=== PATIENT | male | born 1955 | race Caucasian/White ===

== ENCOUNTER 2017-07-13 02:09 | Observation (INO) | payer MEDICARE, OTHER ==
[2017-07-13] MEDS ORDERED: Diphtheria,Pertussis(Acell),Tetanus Vaccine 0.5 ML SDV IM ONE (02:37)
--- NOTE | 2017-07-13 02:37 | EDM.PDOC ---
ED HPI GENERAL MEDICAL PROBLEM - General Stated Complaint: LACERATION ON FOREHEAD Time Seen by Provider: 07/13/17 02:09 Source of Information: Reports: Patient, EMS History Limitations: Reports: Altered Mental Status - History of Present Illness INITIAL COMMENTS - FREE TEXT/NARRATIVE: 61 y.o.w.m h/o bilateral below knee amputation, came to the ed after he fell out of his wheelchair and hit his head with LOC. As per EMS, pt was drinking. This was denied by the patient. Pt is a poor historian disoriented to time and place, guevara not remember his meds, no family is present. Pt is not able to give a clear HPI. BP 172/71 pulse 64 temp 36.3 pulse ox 96 Onset: Today Onset Date: 07/13/17 Onset Time: 01:00 Duration: Minutes:, Constant, Intermittent Location: Reports: Head Quality: Reports: Ache, Burning, Dull Severity: Mild Improves with: Reports: Rest Worsens with: Reports: Movement Context: Reports: Trauma (head imjury) Headache Pain Score (Numeric/FACES): 2 - Related Data Allergies Allergy/AdvReac Type Severity Reaction Status Date / Time celecoxib [From Celebrex] Allergy Hives Verified 07/13/17 03:29 Home Meds: Home Meds . [Unable to Verify Home Med List] 07/13/17 [History] Past Medical History HEENT History: Reports: Impaired Vision Cardiovascular History: Reports: Blood Clots/VTE/DVT, High Cholesterol, Hypertension, SOB on Exertion Respiratory History: Reports: COPD, Pneumonia, Recurrent, SOB Gastrointestinal History: Reports: GERD Genitourinary History: Reports: Prostate Disorder Musculoskeletal History: Reports: Amputation, Arthritis, Fracture, Osteoarthritis, Osteoporosis, RA, Other (See Below) Other Musculoskeletal History: narciso legs one 4yrs ago the other 5 yrs ago, Lt hipfx, narciso wrist fx Neurological History: Reports: None Psychiatric History: Reports: Anxiety, Depression, Panic Attack Endocrine/Metabolic History: Reports: Osteoporosis Hematologic History: Reports: None Immunologic History: Reports: None Oncologic (Cancer) History: Reports: None Dermatologic History: Reports: None - Infectious Disease History Infectious Disease History: Reports: Chicken Pox, Influenza, MRSA, Shingles - Past Surgical History Head Surgeries/Procedures: Reports: None HEENT Surgical History: Reports: Naso-Sinus Surgery Cardiovascular Surgical History: Reports: None Respiratory Surgical History: Reports: None GI Surgical History: Reports: Colonoscopy, EGD, Hernia, Inguinal Male Surgical History: Reports: Circumcision Endocrine Surgical History: Reports: None Neurological Surgical History: Reports: None Musculoskeletal Surgical History: Reports: Amputation, Carpal Tunnel, Hip Replacement Oncologic Surgical History: Reports: None Dermatological Surgical History: Reports: None Social & Family History - Family History Family Medical History: Noncontributory HEENT: Reports: None OBGYN: Reports: Immunologic: Reports: None - Tobacco Use Smoking Status *Q: Current Every Day Smoker Years of Tobacco use: 40 Packs/Tins Daily: 0.3 Used Tobacco, but Quit: Yes Month Tobacco Last Used: may 2015 Second Hand Smoke Exposure: No - Caffeine Use Caffeine Use: Reports: Coffee, Soda - Alcohol Use Days Per Week of Alcohol Use: 2 Number of Drinks Per Day: 3 Total Drinks Per Week: 6 - Recreational Drug Use Recreational Drug Use: No - Living Situation & Occupation Living situation: Reports: with Family ED ROS GENERAL - Review of Systems Review Of Systems: Unable To Obtain (pt is confused, no family) ED EXAM, HEAD INJURY - Physical Exam Exam: See Below Exam Limited By: Altered Mental Status General Appearance: Alert, WD/WN, Mild Distress Head: Scalp Hematoma, Facial Lacerations (forehead) Eyes: Left Eye: Periorbital Changes (LAC left periorbital LAC), Bilateral Eye: Normal Inspection Ears: Normal External Exam Nose: Normal Inspection Throat/Mouth: Normal Inspection Neck: Non-Tender Respiratory: No Respiratory Distress, Lungs Clear Cardiovascular: Normal Peripheral Pulses GI/Abdominal Exam: Normal Bowel Sounds, Soft, Non-Tender (Male) Exam: Deferred Rectal (Males) Exam: Deferred Back Exam: Normal Inspection Extremities: Normal Inspection, Normal Range of Motion, Other (bilaterl below knee amputation) Neurologic: supervisor cartography II-XII nml As Tested, Abnormal Cerebellar Tests, Abnormal Gait, Disoriented x 3 Skin: Other (LAC right forehead) - Termo Coma Score Best Eye Response (Jennifer): (4) Open Spontaneously Best Verbal Response (Jennifer): (5) Oriented Best Motor Response (Jennifer): (4) Withdraws to Pain Jennifer Total: 15 ED LACERATION/WOUND & [place] PROC - Laceration/Wound Repair Right Forehead Lac/wound length in cm: 2 Appearance: Subcutaneous, Linear, Stellate Distal NVT: Neuro & Vascular Intact, No Tendon Injury Anesthetic Type: Local Local Anesthesia - Lidocaine (Xylocaine): 2% Plain Local Anesthetic Volume: 2cc Skin Prep: Chlorhexidine (Hibiciens) Saline irrigation (cc's): 5 Exploration/Debridement/Repair: Wound Explored, In a Bloodless Field, Explored to Base Closed with: Sutures Suture Size: 4-0 # of Sutures: 4 Suture Type: Interrupted Tetanus Status Addressed: Yes Complications: No Course - Vital Signs Text/Narrative:: 61 y.o.w.m h/o bilateral below knee amputation, came to the ed after he fell out of his wheelchair and hit his head with LOC. As per EMS, pt was drinking. This was denied by the patient. Pt is a poor historian disoriented to time and place, guevara not remember his meds, no family is present. Pt is not able to give a clear HPI. BP 172/71 pulse 64 temp 36.3 pulse ox 96 PE: Mental status change, Head injury, Laceration r forehead, Narciso below knee amputation Labs: CBC NL, ETOH < 0.03 Imaging: CT head NAD Impression: Mental status changes after head trauma. Lac right forehead ( repaired) Tx: Wound repair Reexam: Pt is confused to Time and place Plan: Admit to [facility], no family is present Last Recorded V/S: Last Vital Signs Temp 36.7 C 07/13/17 08:00 Pulse 99 07/13/17 08:00 Resp 22 H 07/13/17 08:00 BP 140/89 07/13/17 08:00 Pulse Ox 92 L 07/13/17 08:29 - Orders/Labs/Meds Orders: Active Orders 24 hr Category Date Time Status Vaccines to be Administered [RC] PER UNIT ROUTINE Care 07/13/17 02:38 Active Cervical Spine wo Cont [CT] Stat Exams 07/13/17 02:19 Taken Head wo Cont [CT] Stat Exams 07/13/17 02:19 Taken Labs: Laboratory Tests 07/13/17 07/13/17 07/13/17 Range/Units 02:29 02:29 02:29 WBC 6.4 (4.5-12.0) X10-3/uL RBC 3.85 L (4.30-5.75) x10(6)uL Hgb 11.5 (11.5-15.5) g/dL Hct 33.8 (30.0-51.3) % MCV 87.8 (80-96) fL MCH 29.8 (27.7-33.6) pg MCHC 33.9 (32.2-35.4) g/dL RDW 16.9 H (11.5-15.5) % Plt Count 265 (125-369) X10(3)uL MPV 8.0 (7.4-10.4) fL Neut % (Auto) 61.9 (46-82) % Lymph % (Auto) 22.4 (13-37) % [place] % (Auto) 11.6 (4-12) % Eos % (Auto) 4 (1.0-5.0) % Baso % (Auto) 1 (0-2) % Neut # (Auto) 4.1 (1.6-8.3) # Lymph # (Auto) 1.4 (0.6-5.0) # [place] # (Auto) 0.7 (0.0-1.3) # Eos # (Auto) 0.2 (0.0-0.8) # Baso # (Auto) 0.0 (0.0-0.2) # PT 11.1 (8.7-11.1) INR 1.10 (0.89-1.13) NT-Pro-B Natriuret Pep 101 (<=125) pg/mL Ethyl Alcohol < 0.03 H (<0.03) % Meds: Medications Discontinued Medications Generic Name Dose Route Start Last Admin Trade Name Pb PRN Reason Stop Dose Admin Acetaminophen 500 mg 07/13/17 08:14 07/13/17 08:33 Tylenol Extra Strength PO 500 mg Q4H PRN Administration Pain Diphtheria/Tetanus/Acell Pertussis 0.5 ml 07/13/17 02:37 07/13/17 03:15 Adacel IM 07/13/17 02:38 0.5 ml .ONCE ONE Administration Lidocaine HCl 2 ml 07/13/17 04:04 Xylocaine 2% INFILT 07/13/17 04:05 .STK-MED ONE Pneumococcal Polyvalent Vaccine 0.5 ml 07/13/17 16:00 Pneumovax 23 IM 07/13/17 16:01 .ONCE ONE Departure - Departure Time of Disposition: 06:00 Disposition: Refer to Observation Condition: Fair Clinical Impression: Concussion Mental status change Qualifiers: Altered mental status type: disorientation Qualified Code(s): R41.0 - Disorientation, unspecified Head injury Qualifiers: Encounter type: initial encounter Qualified Code(s): S09.90XA - Unspecified injury of head, initial encounter - Discharge Information - My Orders Last 24 Hours: My Active Orders 07/13/17 02:19 Cervical Spine wo Cont [CT] Stat Head wo Cont [CT] Stat 07/13/17 02:38 Vaccines to be Administered [RC] PER UNIT ROUTINE - Assessment/Plan Last 24 Hours: My Active Orders 07/13/17 02:19 Cervical Spine wo Cont [CT] Stat Head wo Cont [CT] Stat 07/13/17 02:38 Vaccines to be Administered [RC] PER UNIT ROUTINE
[2017-07-13] MEDS ORDERED: Lidocaine 2% 20 ML MDV INFILT ONE (04:04)
--- NOTE | 2017-07-13 08:11 | PCM.HP ---
H&P History of Present Illness - General Date of Service: 07/13/17 Admit Problem/Dx: Admission Diagnosis/Problem Admission Diagnosis/Problem Concussion injury of brain Source of Information: Patient, EMS Notes Reviewed History Limitations: Reports: Altered Mental Status - History of Present Illness Initial Comments - Free Text/Narative: This is a 61-year-old male patient this in a wheelchair. He states he fell out of bed but the ER note says he fell out of his wheelchair. He had a couple of alcoholic drinks. He is a double amputee. He had a laceration over his right eye and felt to be confused. Head CT that showed no bleeding and neck CT that showed no acute changes. He was admitted for confusion. He states today he feels better and he has no confusion. He has a little bit headache and pain over his right eye. Denies fevers, chills. He says he has phantom pain all the time and takes pain medications. We do not have a record of his pain medication because he gets up at the [place]. He did not bring them in. - Related Data Allergies/Adverse Reactions: Allergies Allergy/AdvReac Type Severity Reaction Status Date / Time celecoxib [From Celebrex] Allergy Hives Verified 07/13/17 03:29 Home Medications: Home Meds Albuterol Sulfate [Albuterol Sulfate HFA] 1 puff IH Q6H PRN 09/21/14 [History] Budesonide/Formoterol [Symbicort 160-4.5 MCG] 2 puff IH BID 09/21/14 [History] Hydrocodone/Acetaminophen [Hydrocodon-Acetaminophn 10-325] 1 tab PO Q6H PRN 02/26 [History] Calcium Carbonate/Vitamin D3 [Calcium Carb 500 MG] 500 mg PO BID 09/26/15 [ History] Diazepam [Valium] 5 mg PO BEDTIME 09/26/15 [History] Gabapentin [Neurontin] 900 mg PO TID 09/26/15 [History] Hydrochlorothiazide 25 mg PO DAILY 09/26/15 [History] Metoprolol Tartrate 12.5 mg PO BID 09/26/15 [History] Pantoprazole [ProTONIX] 40 mg PO DAILY 09/26/15 [History] Potassium Chloride 20 meq PO DAILY 09/26/15 [History] QUEtiapine [SEROquel] 50 mg PO BID@09,14 09/26/15 [History] QUEtiapine [SEROquel] 300 mg PO BEDTIME 09/26/15 [History] Tiotropium [Spiriva HandiHaler] 18 mcg IH DAILY 09/26/15 [History] FLUoxetine [PROzac] 60 mg PO DAILY 09/30/16 [History] Rivaroxaban [Xarelto] 20 mg PO WITHDINNER 09/30/16 [History] Tamsulosin [Tamsulosin 24 Hr] 0.4 mg PO DAILY 09/30/16 [History] predniSONE [Prednisone] 60 mg PO .TAPER 09/30/16 [History] Past Medical History HEENT History: Reports: Impaired Vision Cardiovascular History: Reports: Blood Clots/VTE/DVT, High Cholesterol, Hypertension, SOB on Exertion Respiratory History: Reports: COPD, Pneumonia, Recurrent, SOB Gastrointestinal History: Reports: GERD Genitourinary History: Reports: Prostate Disorder Musculoskeletal History: Reports: Amputation, Arthritis, Fracture, Osteoarthritis, Osteoporosis, RA, Other (See Below) Other Musculoskeletal History: narciso legs one 4yrs ago the other 5 yrs ago, Lt hipfx, narciso wrist fx Neurological History: Reports: None Psychiatric History: Reports: Anxiety, Depression, Panic Attack Endocrine/Metabolic History: Reports: Osteoporosis Hematologic History: Reports: None Immunologic History: Reports: None Oncologic (Cancer) History: Reports: None Dermatologic History: Reports: None - Infectious Disease History Infectious Disease History: Reports: Chicken Pox, Influenza, MRSA, Shingles - Past Surgical History Head Surgeries/Procedures: Reports: None HEENT Surgical History: Reports: Naso-Sinus Surgery Cardiovascular Surgical History: Reports: None Respiratory Surgical History: Reports: None GI Surgical History: Reports: Colonoscopy, EGD, Hernia, Inguinal Male Surgical History: Reports: Circumcision Endocrine Surgical History: Reports: None Neurological Surgical History: Reports: None Musculoskeletal Surgical History: Reports: Amputation, Carpal Tunnel, Hip Replacement Oncologic Surgical History: Reports: None Dermatological Surgical History: Reports: None Social & Family History - Family History Family Medical History: Noncontributory HEENT: Reports: None OBGYN: Reports: Immunologic: Reports: None - Tobacco Use Smoking Status *Q: Former Smoker Years of Tobacco use: 40 Packs/Tins Daily: 0.3 Used Tobacco, but Quit: Yes Month Tobacco Last Used: Jul 2016 Second Hand Smoke Exposure: No - Caffeine Use Caffeine Use: Reports: Coffee, Soda, Tea - Alcohol Use Days Per Week of Alcohol Use: 7 Number of Drinks Per Day: 3 Total Drinks Per Week: 21 - Recreational Drug Use Recreational Drug Use: No - Living Situation & Occupation Living situation: Reports: with Family H&P Review of Systems - Review of Systems: Review Of Systems: See Below General: Reports: No Symptoms HEENT: Reports: No Symptoms Pulmonary: Reports: No Symptoms Cardiovascular: Reports: No Symptoms Gastrointestinal: Reports: No Symptoms Genitourinary: Reports: No Symptoms Musculoskeletal: Reports: Other (Cristina MPT) Skin: Reports: No Symptoms Psychiatric: Reports: No Symptoms Neurological: Reports: Confusion Hematologic/Lymphatic: Reports: No Symptoms Immunologic: Reports: No Symptoms Exam - Exam Exam: See Below - Vital Signs Vital Signs: Last Vital Signs Temp 95.5 F 07/13/17 04:30 Pulse 68 07/13/17 04:30 Resp 22 H 07/13/17 04:30 BP 132/71 07/13/17 04:30 Pulse Ox 96 07/13/17 04:30 Weight: 171 lb 3.2 oz - Exam General: Alert, Oriented, Cooperative HEENT: PERRLA, Hearing Intact, Mucosa Moist & [place], Posterior Pharynx Clear, TMs Clear Neck: Supple, Trachea Midline. No: Lymphadenopathy Lungs: Clear to Auscultation, Normal Respiratory Effort Cardiovascular: Regular Rate, Regular Rhythm, Normal S1, Normal S2. No: Systolic Murmur, Diastolic Murmur GI/Abdominal Exam: Normal Bowel Sounds, Soft, Non-Tender, No Organomegaly, No Distention, No Abnormal Bruit, No Mass Back Exam: Normal Inspection Extremities: Other (BKA bilateral) Skin: Warm, Dry, Intact Neurological: Cranial Nerves Intact, Strength Equal Bilateral, Normal Speech, Normal Tone Neuro Extensive - Mental Status: Alert, Oriented x3, Normal Mood/Affect, Normal Cognition Neuro Extensive - Motor, Sensory, Reflexes: No: Normal Gait Psychiatric: Alert, Normal Affect, Normal Mood - Patient Data Result Diagrams: 07/13/17 02:29 *Q Meaningful Use (ADM) - VTE *Q VTE Criteria *Q: - Stroke *Q Stroke Criteria *Q: - AMI *Q AMI Criteria *Q: - Problem List (1) Concussion SNOMED Code(s): 152194919 ICD Code: S06.0X9A - CONCUSSION W LOSS OF CONSCIOUSNESS OF UNSP DURATION, INIT Status: Acute Current Visit: Yes (2) Laceration SNOMED Code(s): 145855980 ICD Code: CAE0879 - Status: Acute Current Visit: Yes Problem List Initiated/Reviewed/Updated: Yes Orders Last 24hrs: Active Orders 24 hr Category Date Time Status Neuro Check [RC] Q2HR Care 07/13/17 04:05 Active Pneumococcal Polyvalent-23 Vac [Pneumovax 23] Med 07/13/17 16:00 Once 0.5 ml IM .ONCE ONE Medication Orders Pneumococcal Polyvalent Vaccine (Pneumovax 23) 0.5 ml IM .ONCE ONE Stop: 07/13/17 16:01 Assessment/Plan Comment:: Patient was admitted for observation. Neuro checks were ordered. Patient did not have his home medication so nothing was given. Reevaluated this morning. He is normal with his mentation CT scans negative. We'll discharge to home. Recheck in 7-10 days with his regular provider at the [place] Dr. Helder Gonzalez and sutures removal in 7-10 days.
[2017-07-13] MEDS ORDERED: Acetaminophen 500 MG Tab PO PRN (08:14)
--- NOTE | 2017-07-13 08:14 | PCM.DCSUM1 ---
Discharge Summary - Hospital Course Free Text/Narrative:: Hospital course-patient was watched overnight because of his confusion. Neurochecks were done and patient's mind cleared by the morning. Because he did so well we'll discharge him home. He does have a laceration and sutures will have to be removed. We did not have his medications here and there is no list from the [facility] because he came overnight. He will take his home medication as previously prescribed. Brief History: This is a 61-year-old male patient this in a wheelchair. He states he fell out of bed but the ER note says he fell out of his wheelchair. He had a couple of alcoholic drinks. He is a double amputee. He had a laceration over his right eye and felt to be confused. Head CT that showed no bleeding and neck CT that showed no acute changes. He was admitted for confusion. He states today he feels better and he has no confusion. He has a little bit headache and pain over his right eye. Denies fevers, chills. He says he has phantom pain all the time and takes pain medications. We do not have a record of his pain medication because he gets up at the [place]. He did not bring them in. - Discharge Data Discharge Date: 07/13/17 Discharge Disposition: Home, Self-Care 01 Condition: Good - Discharge Diagnosis/Problem(s) (1) Concussion SNOMED Code(s): 012481840 ICD Code: S06.0X9A - CONCUSSION W LOSS OF CONSCIOUSNESS OF UNSP DURATION, INIT Status: Acute Current Visit: Yes (2) Laceration SNOMED Code(s): 863966428 ICD Code: [id number] - Status: Acute Current Visit: Yes - Patient Instructions Diet: Regular Diet as Tolerated Activity: As Tolerated Driving: May Drive Today Showering/Bathing: May Shower Other/Special Instructions: 1. Recheck with Dr. Helder Gonzalez 7-10 days. 2. Suture removal in 7-10 days. Continue that at the [place], here at the walk-in clinic , [place] or [facility] - Discharge Plan Home Medications: Home Meds Albuterol Sulfate [Albuterol Sulfate HFA] 1 puff IH Q6H PRN 09/21/14 [History] Budesonide/Formoterol [Symbicort 160-4.5 MCG] 2 puff IH BID 09/21/14 [History] Hydrocodone/Acetaminophen [Hydrocodon-Acetaminophn 10-325] 1 tab PO Q6H PRN 02/26 [History] Calcium Carbonate/Vitamin D3 [Calcium Carb 500 MG] 500 mg PO BID 09/26/15 [ History] Diazepam [Valium] 5 mg PO BEDTIME 09/26/15 [History] Gabapentin [Neurontin] 900 mg PO TID 09/26/15 [History] Hydrochlorothiazide 25 mg PO DAILY 09/26/15 [History] Metoprolol Tartrate 12.5 mg PO BID 09/26/15 [History] Pantoprazole [ProTONIX] 40 mg PO DAILY 09/26/15 [History] Potassium Chloride 20 meq PO DAILY 09/26/15 [History] QUEtiapine [SEROquel] 50 mg PO BID@09,14 09/26/15 [History] QUEtiapine [SEROquel] 300 mg PO BEDTIME 09/26/15 [History] Tiotropium [Spiriva HandiHaler] 18 mcg IH DAILY 09/26/15 [History] FLUoxetine [PROzac] 60 mg PO DAILY 09/30/16 [History] Rivaroxaban [Xarelto] 20 mg PO WITHDINNER 09/30/16 [History] Tamsulosin [Tamsulosin 24 Hr] 0.4 mg PO DAILY 09/30/16 [History] predniSONE [Prednisone] 60 mg PO .TAPER 09/30/16 [History] Patient Handouts: Deep Vein Thrombosis Forms: ED Department Discharge Referrals: PCP,None [Primary Care Provider] - - Patient Data Vitals - Most Recent: Last Vital Signs Temp 95.5 F 07/13/17 04:30 Pulse 68 07/13/17 04:30 Resp 22 H 07/13/17 04:30 BP 132/71 07/13/17 04:30 Pulse Ox 96 07/13/17 04:30 Weight - Most Recent: 171 lb 3.2 oz Med Orders - Current: Current Medications Pneumococcal Polyvalent Vaccine (Pneumovax 23) 0.5 ml IM .ONCE ONE Stop: 07/13/17 16:01 Discontinued Medications Diphtheria/Tetanus/Acell Pertussis (Adacel) 0.5 ml IM .ONCE ONE Stop: 07/13/17 02:38 Last Admin: 07/13/17 03:15 Dose: 0.5 ml Lidocaine HCl (Xylocaine 2%) 2 ml INFILT .STK-MED ONE Stop: 07/13/17 04:05 *Q Meaningful Use (DIS) - VTE *Q VTE Criteria *Q: - Stroke *Q Stroke Criteria *Q: - AMI *Q AMI Criteria *Q:
[2017-07-13 10:53] VITALS: BP 140/89
[2017-07-13] MEDS ORDERED: Pneumococcal Polyvalent-23 Vaccine 0.5 ML SDV IM ONE (16:00)
== END 2017-07-13 09:10 | disposition home or self-care (01) ==
LOC: FB.ED 02:09 → FB.MS 04:03
PROVIDERS: ADMIT Family Medicine; ATTEND Family Medicine
DX: S06.0X9A Concussion with loss of consciousness of unspecified duration, initial encounter (principal); S01.81XA Laceration without foreign body of other part of head, initial encounter; I10 Essential (primary) hypertension; J44.9 Chronic obstructive pulmonary disease, unspecified; M19.90 Unspecified osteoarthritis, unspecified site; M81.0 Age-related osteoporosis without current pathological fracture; M06.9 Rheumatoid arthritis, unspecified; F32.9 Major depressive disorder, single episode, unspecified; F41.9 Anxiety disorder, unspecified; W05.0XXA Fall from non-moving wheelchair, initial encounter; Z79.899 Other long term (current) drug therapy; Z89.612 Acquired absence of left leg above knee; Z89.611 Acquired absence of right leg above knee; Z88.8 Allergy status to other drugs, medicaments and biological substances; Z87.891 Personal history of nicotine dependence
CPT/HCPCS: 12011; 36415; 70450; 72125; 83880; 85025; 85610; 90471; 90715; 99285; A9270; G0378; G0480; 99234

== ENCOUNTER 2017-12-01 16:50 | Emergency (ER) | payer OTHER ==
[2017-12-01] MEDS ORDERED: Albuterol/Ipratropium 3.0-0.5 MG/3 ML Neb Soln NEB ONE (16:59)
[2017-12-01] MEDS ORDERED: methylPREDNISolone Sodium Succinate 125 MG/2 ML SDV IVPUSH ONE (17:00)
[2017-12-01] MEDS ORDERED: Nitroglycerin 0.4 MG Tab.SL SL PRN (17:00)
[2017-12-01] MEDS ORDERED: Morphine 2 MG/ML Syringe IVPUSH ONE ×2 (17:02→17:15)
[2017-12-01] MEDS ORDERED: Nitroglycerin/D5W 25 MG/250 ML BOTTLE IV SCH (17:15)
[2017-12-01] MEDS ORDERED: Sodium Chloride 0.9% 1,000 ML IV SCH ×2 (17:15→19:15)
[2017-12-01] MEDS ORDERED: EPINEPHrine 4 MG in Dextrose 5% in Water 250 ML IV SCH ×2 (17:30)
[2017-12-01] MEDS ORDERED: DOPamine/Dextrose 5%-Water 400 MG/250 ML BAG IV SCH (17:45)
[2017-12-01] MEDS ORDERED: Potassium Chloride 10% 20 MEQ/15 ML Soln 15 ML UD Cup PO ONE (18:36)
[2017-12-01] MEDS ORDERED: Midazolam 1 MG/ML 2 ML SDV IV ONE (18:45)
[2017-12-01] MEDS ORDERED: Rocuronium 100 MG/10 ML MDV IV ONE (18:45)
[2017-12-01] MEDS ORDERED: Etomidate 2 MG/ML 20 ML SDV IVPUSH ONE (18:45)
[2017-12-01] MEDS ORDERED: Potassium Chloride 100 ML ONE (18:58)
[2017-12-01] MEDS ORDERED: Potassium Chloride 20 MEQ in Premix Bag 1 BAG IV ONE (19:00)
[2017-12-01] MEDS ORDERED: Cefepime 2 GM in Sodium Chloride 0.9% 50 ML IV ONE (19:05)
[2017-12-01] MEDS ORDERED: Cefepime 1 GM Vial IM SCH ×2 (19:15)
[2017-12-01 20:10] VITALS: BP 69/51
--- NOTE | 2017-12-02 08:53 | CR ---
INDICATION: Short of breath, COPD. CHEST: AP portable upright view of the chest was obtained 12/01/2017 and compared with 10/03/2017 and 10/03/2016, and now revealed an area of moderately dense infiltration in the area of the right lower lobe - right lung base. Some relatively patchy infiltration may be present in the left mid lung field to lower lung field and lung base. No gross pleural effusion was seen. Hyperaeration is noted with somewhat flattened diaphragm leaf on the left, suggesting COPD. The heart is normal in size. The aorta is tortuous to a mild degree and calcified in the arch area. Overlying EKG leads are noted. IMPRESSION: 1. Bilateral pneumonia, most intense in the right lower lung field laterally, but also in the left mid to lower lung field - lung base. 2. COPD. 3. ASD aorta. MTDD
--- NOTE | 2017-12-02 11:18 | ER ---
DATE SEEN: 12/01/2017 CHIEF COMPLAINT: Shortness of breath 3 days' duration, chronic COPD, intubated in therapy for 3 weeks for massive effusion, chest tube placed and removed. HISTORY OF PRESENT ILLNESS: The patient has had bilateral BK amputations, 1st of which was 2010 from a serious infection and the 2nd one was 2011 for a blood clot in his leg. He lives with his significant other (20+ years). Nonalcoholic. No longer smoking. Did smoke at one time. No recent medication change. Severe bilateral vascular disease, both lower extremities. Has been on lifelong anticoagulation, not on any anticoagulants. After new data emerged from reviewing the chart, apparently had right ankle surgery with pins with failure in 1999 resulting in a right BK amputation. In 2001, he had ulcers and gangrene of left foot and a left BKA. He has a left total hip arthroplasty in 2013 after fracture. DVT in his left leg history. Umbilical herniorrhaphy, bilateral ulnar nerve transposition, arthritis, hands, elbows, and shoulders, GERD, hypertension, hyperlipidemia, cigarette smoker - no longer, BPH, and depression. CURRENT MEDICATIONS: 1. Flomax 0.4 mg daily. 2. Quetiapine 50 mg b.i.d. 3. Gabapentin 1200 mg t.i.d. 4. Doxepin 10 mg at bedtime. 5. Hydroxyzine 10 mg t.i.d. 6. Seroquel 300 mg at bedtime. 7. Protonix 40 mg daily. 8. Hydrochlorothiazide 25 mg daily. 9. Proventil p.r.n. REVIEW OF SYSTEMS: Initially, I had difficulty to perform review of systems. GENERAL: His respiratory status improved. Review of systems noted. HEENT: Has decreased hearing. Edentulous. CARDIOVASCULAR: As noted as above. GI: No constipation, blood in the stool, black tarry stool, or change of bowels. : Does not have problems with prostatism based on his history. MUSCULOSKELETAL: As noted above, except for peripheral vascular disease and bilateral BK amputations. NEUROLOGIC: No history of strokes. PHYSICAL EXAMINATION: VITAL SIGNS: Heart rate 120, respirations 32, oxygen saturation 88% on room air, this comes up to 92. Temperature 37.9. GENERAL: The patient has marked accessory muscle breathing. He is edentulous. NECK: Supple. PERRLA intact. Hearing is decreased. LUNGS: Decreased air exchange bilaterally. HEART: S1, S2. Distant heart sounds. ABDOMEN: Soft. No guarding. No abdominal discomfort. EXTREMITIES: Bilateral BK amputation. Deep tendon reflexes present in upper and lower extremities. DIAGNOSTIC DATA: The troponin 0.417, came back at 1850. Chest x-ray reveals bilateral interstitial pneumonia. No pneumothorax noted. LABORATORY FINDINGS: White count 3700, PMNs pending, platelets 230,000. D-dimer 3030. Potassium 2.5, sodium 141, chloride 102, bicarb 24, BUN 26, creatinine 1.7, GFR 41, potassium 3, calcium 8.5, albumin low, so corrected calcium is normal. Troponin 0.417. EMERGENCY DEPARTMENT COURSE: The patient was placed on high-flow O2, 15 L nasal cannula. This was sufficient and improved. Consequently, he is placed on a BiPAP 12/17/09 at 90%. His oxygen saturation improved up to 94%. His respiratory effort decreased by 50%. He still has marked accessory breathing. His troponin is 0.41. The patient's status was discussed with Dr. Dowd at [facility] and he felt the patient should be transferred to [place]. I spoke to Dr. Elaine and the patient will be transferred to intensive care. Dr. Elaine suggested the patient be intubated. Intubation is pending. I will start with vancomycin 20 mg/kg and 2 g cefepime IV. DIAGNOSES: 1. Bilateral BK amputation. 2. Uxi-[id number] myocardial infarction. 3. Rule out myocardial insufficiency. 4. Chronic obstructive pulmonary disease with exacerbation and bilateral interstitial pneumonia. 5. Significant peripheral vascular disease. 6. Depression. 7. Dyslipidemia. 8. Gastroesophageal reflux disease. 9. Hypertension. 10.Arthritis of the hands, elbows, and shoulders. 11.Umbilical hernia. 12.Previous deep venous thrombosis, left leg. 13.Benign prostatic hyperplasia. 14.Chronic pain syndrome. The patient will be transferred to [place]. /[id number] GOGO/ISABEL
--- NOTE | 2017-12-02 15:29 | ER ---
DATE SEEN: 12/01/2017 ADDENDUM: The patient has been intubated. No complications. The patient has 2 g of cefepime IM given, 1 g in each shoulder plus 1,500 mg of vancomycin IV started. He has a new changing of 0.417 troponin. Most likely this is secondary to vascular insufficiency and tachycardia. Status has been discussed with Dr. Jimenez. The patient to be transferred soon, now it is 1912 hours. Also, he had the episodes of hypotension or probably secondary to the fact he was lying on his side, and blood pressure cuff was not measuring appropriate circulation. When he lay on his back and was kind of sitting back, blood pressure came up to 114 over the 70s. Consequently, dopamine was stopped and hypotension resolved. The other issue is the patient has hypokalemia. The patient was unable to take oral potassium. Consequently, he is placed on potassium 20 mEq with 10 mEq per hour IV. /[id number] GOGO/ISABEL
== END 2017-12-01 19:30 ==
LOC: FB.ED 16:50
DX: I21.4 Non-ST elevation (NSTEMI) myocardial infarction (principal); J44.1 Chronic obstructive pulmonary disease with (acute) exacerbation; J84.9 Interstitial pulmonary disease, unspecified; I73.9 Peripheral vascular disease, unspecified; F32.9 Major depressive disorder, single episode, unspecified; E78.5 Hyperlipidemia, unspecified; K21.9 Gastro-esophageal reflux disease without esophagitis; I10 Essential (primary) hypertension; M19.90 Unspecified osteoarthritis, unspecified site; K42.9 Umbilical hernia without obstruction or gangrene; N40.0 Benign prostatic hyperplasia without lower urinary tract symptoms; G89.29 Other chronic pain; Z79.899 Other long term (current) drug therapy; Z89.512 Acquired absence of left leg below knee; Z89.511 Acquired absence of right leg below knee; Z86.718 Personal history of other venous thrombosis and embolism
CPT/HCPCS: 31500; 36415; 36600; 71045; 80053; 82803; 83605; 84484; 85025; 85379; 94640; 94660; 96361; 96365; 96366; 96372; 96375; 99291; J0692; J1265; J2270; J2930; J3370; J3480; J7040; J7050; J7620; J2250